=== PATIENT | male | born 1980 | race Caucasian/White ===

== ENCOUNTER 2016-11-11 07:56 | Emergency (ER) | payer MEDICAID ==
[~2016-11-11] VITALS: Ht 188 cm; Wt 90.7 kg
[2016-11-11 08:02] VITALS: BP 125/62
[2016-11-11] MEDS ORDERED: ONDANSETRON 4 MG TAB.RAPDIS ONE (08:13)
[2016-11-11] MEDS ORDERED: HYDROCODONE/APAP 5/325MG 1 EACH TABLET ONE (08:13)
[2016-11-11] MEDS ORDERED: HYDROCODONE/APAP 5/325MG 1 EACH TABLET PO ONE (08:30)
[2016-11-11] MEDS ORDERED: ONDANSETRON 4 MG TAB.RAPDIS PO ONE (08:30)
--- NOTE | 2016-11-11 08:43 | NUR ---
SPORTS MEDICINE [employer]SE[facility] AT [employer]EDS[employer]
== END 2016-11-11 09:18 | disposition home or self-care (01) ==
LOC: ER 07:57
DX: S93.602A Unspecified sprain of left foot, initial encounter (principal); F17.200 Nicotine dependence, unspecified, uncomplicated; W18.30XA Fall on same level, unspecified, initial encounter; Y93.89 Activity, other specified; Y92.89 Other specified places as the place of occurrence of the external cause; Y99.8 Other external cause status
CPT/HCPCS: 73630; 99284; A4606; Q0162; Z7610